=== PATIENT | male | born 1965 | race Caucasian/White ===

== ENCOUNTER 2017-09-24 20:05 | Inpatient (IN) | payer OTHER ==
[~2017-09-24] VITALS: Ht 160 cm; Wt 108.0 kg
[2017-09-24 20:24] VITALS: BP 189/112
--- NOTE | 2017-09-24 20:33 | NUR ---
PT TAKEN TO BED 11
--- NOTE | 2017-09-24 20:57 | NUR ---
Pt c/o hypertention x3 days. VSS. Pt in bed in POC with HOB elevated. ER aware. Continue to monitor.
--- NOTE | 2017-09-24 21:15 | NUR ---
DR. CROW EVALUATING PATIENT
[2017-09-24] MEDS ORDERED: FUROSEMIDE 40 MG/4 ML VIAL IVP ONE (21:20)
[2017-09-24] MEDS ORDERED: hydrALAZINE 20 MG/ML VIAL IVP ONE (21:20)
--- NOTE | 2017-09-24 21:22 | NUR ---
X-Ray at bedside.
[2017-09-24 21:58] LABS: BASOPHILS # (AUTO) 0.2 K/uL (0.00-0.22); BASOPHILS % (AUTO) 1.9 % (0.0-2.0); EOSINOPHILS # (AUTO) 0.1 K/uL (0-0.4); EOSINOPHILS % (AUTO) 1.2 % (0.0-4.0); HEMATOCRIT 39.7 % (36-52); HEMOGLOBIN 13.4 g/dL (12.0-18.0); LYMPHOCYTES # (AUTO) 2.6 K/uL (2.0-11.5); LYMPHOCYTES % (AUTO) 24.8 % (20.5-51.1); MEAN CORPUSCULAR HEMOGLOBIN 27 pg (27-31); MEAN CORPUSCULAR HGB CONC 34 g/dL (33-37); MEAN CORPUSCULAR VOLUME 81 fL (80-94); MONOCYTES # (AUTO) 0.8 K/uL (0.8-1.0); MONOCYTES % (AUTO) 7.7 % (1.7-9.3); NEUTROPHILS # (AUTO) 6.6 K/uL (1.8-7.7); NEUTROPHILS % (AUTO) 64.4 % (42.2-75.2); PLATELET COUNT (AUTO) 247 K/uL (140-450); RED BLOOD CELL COUNT(AUTO) 4.91 MIL/uL (4.20-6.10); RED CELL DISTRIBUTION WIDTH 13.3 % (11.6-13.7); WHITE BLOOD COUNT (AUTO) 10.3 K/uL (4.8-10.8)
[2017-09-24 22:10] LABS: ANION GAP 12.5 (8-16); CARBON DIOXIDE 23.6 mmol/L (21-32); CREATININE 2.5 mg/dL (0.7-1.3); POTASSIUM 4.1 mmol/L (3.5-5.1)
[2017-09-24 22:16] LABS: ALBUMIN 1.6 g/dL (3.4-5.0); TOTAL BILIRUBIN 0.4 mg/dL (0.0-1.0)
[2017-09-24] MEDS ORDERED: NACL 0.9% 1,000 ML IV SCH (22:59)
[2017-09-24] MEDS ORDERED: ALBUMIN HUMAN 25% 100 ML IV SCH (23:00)
[2017-09-24] MEDS ORDERED: LORazepam 2 MG/ML VIAL IVP PRN (23:00)
[2017-09-24] MEDS ORDERED: ONDANSETRON 4 MG/2 ML VIAL IVP PRN (23:00)
[2017-09-24] MEDS ORDERED: ACETAMINOPHEN 325 MG TAB PO PRN (23:00)
[2017-09-24] MEDS ORDERED: DEXTROSE 50% 50 ML SYR IVP PRN (23:00)
[2017-09-24] MEDS ORDERED: HYDROcodone/APAP 5/325 MG 1 TAB TAB PO PRN (23:00)
[2017-09-24] MEDS ORDERED: AMLO5TAB PO (23:08)
[2017-09-24] MEDS ORDERED: ATOR20TA PO (23:09)
[2017-09-24] MEDS ORDERED: METF500T PO (23:09)
[2017-09-24] MEDS ORDERED: GLIP5TAB4 PO (23:09)
--- NOTE | 2017-09-24 23:20 | NUR ---
Pt taken to floor room 123A by Malik MCARTHUR via angélica with VSS
[2017-09-24 23:30] VITALS: BP 175/101
--- NOTE | 2017-09-24 23:30 | NUR ---
Report and Care transfered to Kimo MCARTHUR
--- NOTE | 2017-09-24 23:30 | NUR ---
Admitted from ER, with chief complaint of ELEVATED BLOOD PRESSURE, INCREASING BLE EDEMA SINCE 4 DAYS AGO. PT STATED THAT HE WENT TO URGENT CARE 2 DAYS AGO AND WAS TOLD TO GO TO THE ER. 52 y/o, Male, Cooperative, AOX4, AMBULATORY, ABLE TO VERBALIZE NEEDS. COOK MANAGER IN PLACE. PT DENIES CHEST PAIN, SOB OR S/S OF ACUTE DISTRESS. SPO2 98% ON ROOM AIR, RR 20 EVEN AND UNLABORED. BP 175/101, HR 110. PT WAS JUST MEDICATED WITH APRESOLINE IVP AND LASIX IVP IN ER, WILL MONITOR. BLE EDEMA NOTED. IV ACCESS ASYMPTOMATIC, PATENT AND INTACT, SALINE LOCKED. oriented to call light, bed, phone,television, bathroom, smoking policy, visiting hours, procedures, ID bracelet on. Belongings list checked. ALL NEEDS MET. SAFETY MEASURES ENSURED. CALL LIGHT WITHIN REACH.
[2017-09-24] MEDS: BLOOD GLUCOSE MONITORING 1 DEV DEV FS SCH (23:50)
--- NOTE | 2017-09-24 23:50 | NUR ---
BLOOD GLUCOSE 126, NO INSULIN COVERAGE NEEDED. PROVIDED PT WITH SANDWICH. ADMINISTERED ALBUMIN IV WITH EDUCATION, PT VERBALIZED UNDERSTANDING. ALL NEEDS MET. IV INFUSING WELL. SAFETY MEASURES ENSURED. CALL LIGHT WITHIN REACH.
[2017-09-25] VITALS (10 sets, daily range): BP systolic 164–189; BP diastolic 95–113
[2017-09-25 00:47] LABS: CREATINE KINASE MB 4.3 ng/mL (0-3.6)
[2017-09-25] MEDS ORDERED: PNEUMOCOCCAL VACCINE 23 MCG/0.5 ML VIAL IMVAC PRN (02:00)
[2017-09-25] MEDS ORDERED: INFLUENZA VIRUS VACCINE QUAD 0.5 ML SYR IMVAC PRN (02:00)
[2017-09-25] MEDS: hydrALAZINE 20 MG/ML VIAL IVP PRN ×3 (04:50→20:15)
--- NOTE | 2017-09-25 05:20 | NUR ---
CALLED DR GAMBINO, COMMERCIAL CENSUS TAKER FOR DR MCLAUGHLIN, MADE AWARE OF BP 171/99, RECEIVED ORDER FOR APRESOLINE 10MG IVP Q4H PRN FOR SBP > 150. ADMINISTERED APRESOLIN 10MG IVP AT THIS TIME WITH EDUCATION, PT VERBALIZED UNDERSTANDING. ALL NEEDS MET. SAFETY MEASURES ENSURED. CALL LIGHT WITHIN REACH.
[2017-09-25] MEDS: BLOOD GLUCOSE MONITORING 1 DEV DEV FS SCH ×4 (06:17→20:13)
--- NOTE | 2017-09-25 06:23 | NUR ---
BLOOD GLUCOSE 109, NO INSULIN COVERAGE NEEDED. PT SLEEPING COMFORTABLY, ALL NEEDS MET. SAFETY MEASURES ENSURED. CALL LIGHT WITHIN REACH.
[2017-09-25 07:12] LABS: BASOPHILS # (AUTO) 0.1 K/uL (0.00-0.22); BASOPHILS % (AUTO) 1.4 % (0.0-2.0); EOSINOPHILS # (AUTO) 0.2 K/uL (0-0.4); EOSINOPHILS % (AUTO) 2.6 % (0.0-4.0); HEMATOCRIT 36.9 % (36-52); HEMOGLOBIN 12.5 g/dL (12.0-18.0); LYMPHOCYTES # (AUTO) 2.3 K/uL (2.0-11.5); LYMPHOCYTES % (AUTO) 27.1 % (20.5-51.1); MEAN CORPUSCULAR HEMOGLOBIN 27 pg (27-31); MEAN CORPUSCULAR HGB CONC 34 g/dL (33-37); MEAN CORPUSCULAR VOLUME 81 fL (80-94); MONOCYTES # (AUTO) 0.6 K/uL (0.8-1.0); MONOCYTES % (AUTO) 7.4 % (1.7-9.3); NEUTROPHILS # (AUTO) 5.2 K/uL (1.8-7.7); NEUTROPHILS % (AUTO) 61.5 % (42.2-75.2); PLATELET COUNT (AUTO) 218 K/uL (140-450); RED BLOOD CELL COUNT(AUTO) 4.54 MIL/uL (4.20-6.10); RED CELL DISTRIBUTION WIDTH 13.2 % (11.6-13.7); WHITE BLOOD COUNT (AUTO) 8.4 K/uL (4.8-10.8)
--- NOTE | 2017-09-25 07:15 | NUR ---
ENDORSED PLAN OF CARE TO AM NURSE. CONDITION STABLE.
--- NOTE | 2017-09-25 07:17 | NUR ---
RECEIVED PATIENT REPORT AT BEDSIDE FROM NIGHT NURSE, PATIENT SHOWS NO S/S OF ACUTE DISTRESS ON ROOM AIR. PATIENT DENIES CHEST PAIN AND SOB. PATIENT IS AAOX4, NOTED IV ON THE RT AC 20 G SL. SKIN INTACT. PATIENT WAS EXPLAINED POC FOR TODAY AND VERBALIZED UNDERSTANDING, SAFETY PRECAUTIONS IN PLACE. PATIENT AMB WITH STEADY GAIT. ALL NEEDS MET AT THIS TIME. BED IN LOW POSITION WITH CALL LIGHT WITHIN REACH.
[2017-09-25 07:32] LABS: APPEARANCE,URINE SLIGHTLY HAZY (CLEAR); BILIRUBIN,URINE NEGATIVE (NEGATIVE); BLOOD, URINE 2+ (NEGATIVE); COLOR,URINE YELLOW (YELLOW); LEUKOCYTE ESTERASE ,URINE NEGATIVE (NEGATIVE); NITRITE, URINE NEGATIVE (NEGATIVE); UGLUCOSE 1+ (NEGATIVE)
[2017-09-25 07:38] LABS: ANION GAP 14.4 (8-16); CARBON DIOXIDE 22.3 mmol/L (21-32); CREATININE 2.2 mg/dL (0.7-1.3); POTASSIUM 3.7 mmol/L (3.5-5.1)
--- NOTE | 2017-09-25 07:45 | NUR ---
PATIENT BP IS 179/109 HR 115, PATIENT HAS HYDRALAZINE 10 MG IVP FOR SBP> 150. PATIENT DENIES SOB, CHEST PAIN, DYSPNEA. WILL ADMINISTER MEDICATION.
[2017-09-25 07:58] LABS: CREATINE KINASE MB 2.6 ng/mL (0-3.6)
[2017-09-25] MEDS: ASPIRIN 81 MG TAB.CHEW PO SCH (09:45)
--- NOTE | 2017-09-25 10:00 | NUR ---
ADMINISTERED SCHEDULED MEDICATIONS, PNA VACCINE IM AND FLU VACCINE IM, AND HYDRALAZINE 10 MG IVP FOR BP SBP>150. BP IS 182/110 HR 114. PATIENT DENIES CHEST PAIN AND SOB. WILL REASSESS BP IN ONE HR. DR EDWARDS AT BEDSIDE AND NOTIFIED OF ELEVATED BP. DR FRANKLIN PLACE IN ORDERS.
[2017-09-25] MEDS ORDERED: cloNIDine 0.1 MG TAB PO PRN (10:30)
[2017-09-25] MEDS ORDERED: FUROSEMIDE 40 MG/4 ML VIAL IVP SCH ×2 (11:00→17:00)
[2017-09-25] MEDS ORDERED: METOPROLOL SUCCINATE 50 MG TABER PO SCH ×2 (11:00→14:10)
--- NOTE | 2017-09-25 11:30 | NUR ---
REASSESSED BP IS 164/103 HR 103. ADMINISTERED SCHEDULED MEDICATIONS LASIX 40 MG IVP AND METOPROLOL 25 MG PO. WILL REASSESS BP IN ONE HR.
[2017-09-25 11:38] LABS: RBC,URINE 0-5 (RARE) /HPF (0-5); WBC,URINE 0-5 (RARE) /HPF (0-5)
--- NOTE | 2017-09-25 13:00 | NUR ---
PATIENT'S BP CONTINUOS TO BE ELEVATED, DR MCLAUGHLIN NOTIFIED AND IS TO PLACE ORDERS.
[2017-09-25] MEDS ORDERED: hydrALAZINE 20 MG/ML VIAL IVP PRN (13:50)
--- NOTE | 2017-09-25 14:50 | NUR ---
PATIENT BP IS STILL ELEVATED BP 177/98 HR 98. PATIENT DENIES CHEST PAIN AND SOB. PATIENT HAS PRN MEDICATION FOR ELEVATED BP. WILL CONTINUE TO MONITOR BP AND GIVE PRN FOR BP WHEN NEEDED.
[2017-09-25 15:21] LABS: CREATINE KINASE MB 2.3 ng/mL (0-3.6)
--- NOTE | 2017-09-25 15:32 | NUR ---
09/25/17 RD INITIAL ASSESSMENT COMPLETED PLEASE REFER TO NUTRITION ASSESSMENT UNDER CARE ACTIVITY FOR ESTIMATED NUTRITIONAL NEEDS. RD RECOMMENDATIONS: 1- RECOMMEND CONTINUE CONSISTENT CARBOHYDRATE 60G CCHO DIET 2- PT WILL BENEFIT FROM LOW SODIUM DIET (+EDEMA, HX OF HTN); CONSIDER 60G CCHO 2G NA DIET 3- EDUCATE PT ON DIET 4- ENCOURAGE GRADUAL HEALTHY WEIGHT LOSS 5- F/U 3-5 DAYS; MODERATE RISK. OTILIA STONE MBA, RD
--- NOTE | 2017-09-25 15:39 | NUR ---
ADMINISTERED HYDRALAZINE 10 MG IVP FOR ELEVATED BP OF 178/107 HR 96, PATIENT DENIES CHEST PAIN AND SOB. WILL REASSESS BP IN ONE HR.
[2017-09-25] MEDS: FUROSEMIDE 40 MG/4 ML VIAL IVP SCH (16:17)
--- NOTE | 2017-09-25 16:23 | NUR ---
ADMINISTERED SCHEDULED MEDICATIONS, IV MEDICATION INFUSED WELL. ALL NEEDS MET AT THIS TIME.
--- NOTE | 2017-09-25 17:25 | NUR ---
PATIENT LATEST BP IS 176/101 HR 100, STILL CONTINUES TO BE ELEVATED, PAGED DR MCLAUGHLIN, DR TIJERINA IS AGRICULTURAL EQUIPMENT MECHANIC. AWAITING CALL BACK, PATIENT IS ASYMPTOMATIC, AND DENIES CHEST PAIN AND SOB.
--- NOTE | 2017-09-25 17:32 | NUR ---
SPOKE WITH DR TIJERINA REGARDING PATIENT'S ELEVATED BP. DR ORDERED TO GIVE AMLODIPINE 10 MG NOW, AND AMLODIPINE 10 MG DAILY, AND HYDRALAZINE 20 MG IVP PRN SBP> 160. WILL PLACE ORDERS.
[2017-09-25] MEDS ORDERED: amLODIPine 5 MG TAB PO SCH (17:45)
--- NOTE | 2017-09-25 18:04 | NUR ---
ADMINISTERED SCHEDULED MEDICATIONS AMLODIPINE 10 MG PO. WILL REASSESS BP IN ONE HR. PATIENT IS ASYMPTOMATIC, AND DENIES CHEST PAIN AND SOB. ALL NEEDS MET AT THIS TIME. FAMILY AT BEDSIDE.
--- NOTE | 2017-09-25 19:20 | NUR ---
GAVE PATIENT REPORT AT BEDSIDE TO NIGHT NURSE. PATIENT ENDORSED IN STABLE CONDITION.
--- NOTE | 2017-09-25 19:21 | NUR ---
RECEIVED HANDOFF REPORT FROM AM RN. PATIENT A&OX4. PATIENT DENIES PAIN. PATIENT DENIES STEINER, SOB, CP, DIZZINESS, NUMBNESS, HEART BURN. IV SITE PATENT AND INTACT. AT BEDSIDE. NO SIGNS OR SYMPTOMS OF ACUTE DISTRESS NOTED. CALL LIGHT WITHIN REACH. WILL CONTINUE TO MONITOR.
--- NOTE | 2017-09-25 20:05 | NUR ---
PATIENTS BP IS 175/102. PATIENT DENIES CP, SOB, STEINER, OR DIZZINESS. NO SIGNS OR SYMPTOMS OF ACUTE DISTRESS NOTED. HYDRALAZINE GIVEN PER MD ORDER. WILL REASSESS.
[2017-09-25] MEDS: INSULIN LISPRO SLIDING SCALE 100 UNITS/ML VIAL SUBQ PRN (20:23)
--- NOTE | 2017-09-25 21:15 | NUR ---
PATIENT BP IS 152/87. WILL CONTINUE TO MONITOR.
[2017-09-25 23:10] LABS: TOTAL PROTEIN URINE 298.6 MG/DL
[2017-09-26] VITALS: BP 147/73
[2017-09-26 04:00] VITALS: BP 154/86
[2017-09-26] MEDS: BLOOD GLUCOSE MONITORING 1 DEV DEV FS SCH ×4 (06:28→20:09)
[2017-09-26 06:42] LABS: BASOPHILS # (AUTO) 0.1 K/uL (0.00-0.22); EOSINOPHILS # (AUTO) 0.2 K/uL (0-0.4); EOSINOPHILS % (AUTO) 1.8 % (0.0-4.0); HEMATOCRIT 38.3 % (36-52); LYMPHOCYTES # (AUTO) 2.2 K/uL (2.0-11.5); LYMPHOCYTES % (AUTO) 24.7 % (20.5-51.1); MEAN CORPUSCULAR HEMOGLOBIN 28 pg (27-31); MEAN CORPUSCULAR HGB CONC 34 g/dL (33-37); MEAN CORPUSCULAR VOLUME 81 fL (80-94); MONOCYTES # (AUTO) 0.7 K/uL (0.8-1.0); NEUTROPHILS # (AUTO) 5.6 K/uL (1.8-7.7); NEUTROPHILS % (AUTO) 64.5 % (42.2-75.2); PLATELET COUNT (AUTO) 240 K/uL (140-450); RED BLOOD CELL COUNT(AUTO) 4.73 MIL/uL (4.20-6.10); RED CELL DISTRIBUTION WIDTH 13.6 % (11.6-13.7); WHITE BLOOD COUNT (AUTO) 8.8 K/uL (4.8-10.8)
[2017-09-26 07:02] LABS: ANION GAP 13.3 (8-16); CARBON DIOXIDE 22.2 mmol/L (21-32); POTASSIUM 3.5 mmol/L (3.5-5.1)
--- NOTE | 2017-09-26 07:38 | NUR ---
ENDORSED PLAN OF CARE TO AM RN. PATIENT IN STABLE CONDITION.
--- NOTE | 2017-09-26 07:39 | NUR ---
RECEIVED REPORT FROM TIN ASSORTER NURSE. PATIENT LYING IN BED SLEEPING, AROUSABLE BY VOICE. NO DISTRESS NOTED. DENIES ANY PAIN AT THIS TIME. RESPIRATIONS EVEN, UNLABORED, ON ROOM AIR. AAOX4, CALM, COOPERATIVE, SKIN COLOR APPROPRIATE TO ETHNICITY, WARM TO TOUCH. SKIN IS INTACT. HAS MILD NON-PITTING EDEMA ON LEFT LE. LUNGS CTA ON ALL LOBES. ABDOMEN SOFT, NON-DISTENDED. REVIEWED PLAN OF CARE WITH PATIENT. PATIENT VERBALIZED UNDERSTANDING. SAFETY MEASURES IN PLACE, CALL LIGHT WITHIN REACH. WILL CONTINUE TO MONITOR.
[2017-09-26 08:00] VITALS: BP 165/95
[2017-09-26] MEDS ORDERED: METOPROLOL SUCCINATE 50 MG TABER PO SCH ×2 (09:00→11:00)
[2017-09-26] MEDS ORDERED: amLODIPine 5 MG TAB PO SCH ×2 (09:00)
--- NOTE | 2017-09-26 09:20 | NUR ---
PATIENT LYING IN BED COMFORTABLY. TALKING WITH FAMILY MEMBER AT BEDSIDE. NO DISTRESS NOTED. DENIES ANY PAIN. SCHEDULED MEDICATIONS DUE GIVEN. SAFETY MEASURES IN PLACE, CALL LIGHT WITHIN REACH. WILL CONTINUE TO MONITOR.
[2017-09-26] MEDS: METOPROLOL SUCCINATE 50 MG TABER PO SCH (09:27)
[2017-09-26] MEDS: ATORVASTATIN 20 MG TAB PO SCH (09:29)
[2017-09-26] MEDS: FUROSEMIDE 40 MG/4 ML VIAL IVP SCH ×3 (09:30→16:14)
[2017-09-26] MEDS: ASPIRIN 81 MG TAB.CHEW PO SCH (09:34)
[2017-09-26] MEDS ORDERED: hydrALAZINE 25 MG TAB PO SCH (10:10)
--- NOTE | 2017-09-26 10:15 | NUR ---
24 HOUR URINE PROTEIN AND CREATININE COLLECTION STARTED AT THIS TIME (10:15). SIGNS POSTED ON DOOR, JUGS WITH ICE BIN AT BEDSIDE. SAFETY MEASURES IN PLACE, CALL LIGHT WITHIN REACH. WILL CONTINUE TO MONITOR. Addendum: 09/26/17 at 1133 by Edison Magaña RN CANCEL 24 HOUR URINE START TIME OF 10:15. ORDERED PROTEIN ELECTROPH RANDOM URINE, COLLECTED FROM URINE AT 1015. NEW START TIME WHEN PATIENT FIRST VOIDS. WILL CONTINUE TO MONITOR.
[2017-09-26 11:30] VITALS: BP 166/99
--- NOTE | 2017-09-26 11:33 | NUR ---
PATIENT'S BLOOD PRESSURE IS HIGH, GIVEN NEW HYDRALAZINE BP MEDICATION ORDERED BY DR. EDWARDS. SAFETY MEASURES IN PLACE, CALL LIGHT WITHIN REACH. WILL CONTINUE TO MONITOR.
--- NOTE | 2017-09-26 12:15 | NUR ---
PATIENT SITTING IN BED WITH LUNCH TRAY IN FRONT. NO DISTRESS NOTED. DENIES ANY PAIN. SCHEDULED MEDICATIONS DUE GIVEN. PATIENT VOIDED JUST NOW IN URINAL. START TIME OF 24 HOUR URINE COLLECTION FOR PROTEIN AND CREATININE STARTED AT 12:15. SAFETY MEASURES IN PLACE, CALL LIGHT WITHIN REACH. WILL CONTINUE TO MONITOR.
[2017-09-26] MEDS: INSULIN LISPRO SLIDING SCALE 100 UNITS/ML VIAL SUBQ PRN ×2 (12:25→20:09)
--- NOTE | 2017-09-26 14:18 | NUR ---
PATIENT SITTING IN BED TALKING WITH FAMILY MEMBERS AT BEDSIDE. NO DISTRESS NOTED. DENIES ANY PAIN. CONDITION UNCHANGED. WILL CONTINUE TO MONITOR.
[2017-09-26 16:00] VITALS: BP 156/89
--- NOTE | 2017-09-26 17:39 | NUR ---
PATIENT SITTING IN BED WITH DINNER TRAY IN FRONT. NO DISTRESS NOTED. DENIES ANY PAIN. FAMILY MEMBERS AT BEDSIDE. REPLACED ICE ON 24 HOURS URINE COLLECTION. SAFETY MEASURES IN PLACE, CALL LIGHT WITHIN REACH. WILL CONTINUE TO MONITOR.
--- NOTE | 2017-09-26 18:20 | NUR ---
PATIENT LYING IN BED TALKING WITH FAMILY MEMBERS AT BEDSIDE. NO DISTRESS NOTED. DENIES ANY PAIN. CONDITION UNCHANGED. SAFETY MEASURES IN PLACE, CALL LIGHT WITHIN REACH. WILL CONTINUE TO MONITOR.
--- NOTE | 2017-09-26 19:24 | NUR ---
GAVE REPORT TO HAZARDOUS MATERIAL TECHNICIAN NURSE FOR CONTINUITY OF CARE. PATIENT IN STABLE CONDITION.
--- NOTE | 2017-09-26 19:25 | NUR ---
RECEIVED REPORT FROM DAY SHIFT NURSE. PT IS A/OX4, ON ROOM AIR. 20G IV TO RIGHT AC SALINE LOCKED. PT IS AMBULATORY, WITH STEADY GAIT, AND PT SKIN IS INTACT. UPDATED BOARD. VITAL SIGNS WITHIN NORMAL LIMITS EXCEPT FOR TACHYCARDIC HEART RATE. PT IN STABLE CONDITION, NO SIGNS OF DISTRESS NOTED. BED IN LOWEST POSITION, CALL LIGHT WITHIN REACH. WILL CONTINUE TO MONITOR.
[2017-09-26 20:00] VITALS: BP 176/103
[2017-09-26] MEDS: hydrALAZINE 25 MG TAB PO SCH (20:05)
--- NOTE | 2017-09-26 20:15 | NUR ---
BP WAS HIGH, ADMINISTERED SCHEDULED MEDICATIONS INCLUDING BP MEDICATION, PT TOLERATED WELL. WILL CONTINUE TO MONITOR.
[2017-09-27] VITALS (8 sets, daily range): BP systolic 147–168; BP diastolic 82–104
--- NOTE | 2017-09-27 | NUR ---
VITAL SIGNS WITHIN NORMAL LIMITS. PT IN STABLE CONDITION, NO SIGNS OF DISTRESS NOTED. BED IN LOWEST POSITION, CALL LIGHT WITHIN REACH. WILL CONTINUE TO MONITOR.
[2017-09-27] MEDS: hydrALAZINE 20 MG/ML VIAL IVP PRN (00:32)
--- NOTE | 2017-09-27 04:00 | NUR ---
VITAL SIGNS WITHIN NORMAL LIMITS. PT IN STABLE CONDITION, NO SIGNS OF DISTRESS NOTED. BED IN LOWEST POSITION, CALL LIGHT WITHIN REACH. WILL CONTINUE TO MONITOR.
[2017-09-27 06:42] LABS: BASOPHILS # (AUTO) 0.1 K/uL (0.00-0.22); BASOPHILS % (AUTO) 1.5 % (0.0-2.0); EOSINOPHILS # (AUTO) 0.2 K/uL (0-0.4); EOSINOPHILS % (AUTO) 2.3 % (0.0-4.0); HEMATOCRIT 41.5 % (36-52); HEMOGLOBIN 13.8 g/dL (12.0-18.0); LYMPHOCYTES # (AUTO) 2.4 K/uL (2.0-11.5); LYMPHOCYTES % (AUTO) 26.7 % (20.5-51.1); MEAN CORPUSCULAR HEMOGLOBIN 27 pg (27-31); MEAN CORPUSCULAR HGB CONC 33 g/dL (33-37); MEAN CORPUSCULAR VOLUME 82 fL (80-94); MONOCYTES # (AUTO) 0.7 K/uL (0.8-1.0); MONOCYTES % (AUTO) 7.9 % (1.7-9.3); NEUTROPHILS # (AUTO) 5.5 K/uL (1.8-7.7); NEUTROPHILS % (AUTO) 61.6 % (42.2-75.2); PLATELET COUNT (AUTO) 268 K/uL (140-450); RED BLOOD CELL COUNT(AUTO) 5.04 MIL/uL (4.20-6.10); RED CELL DISTRIBUTION WIDTH 13.1 % (11.6-13.7); WHITE BLOOD COUNT (AUTO) 8.9 K/uL (4.8-10.8)
[2017-09-27 07:03] LABS: ALBUMIN 1.6 g/dL (3.4-5.0); ANION GAP 13.4 (8-16); CARBON DIOXIDE 23.3 mmol/L (21-32); POTASSIUM 3.7 mmol/L (3.5-5.1); TOTAL BILIRUBIN 0.5 mg/dL (0.0-1.0)
[2017-09-27] MEDS: BLOOD GLUCOSE MONITORING 1 DEV DEV FS SCH ×4 (07:12→21:02)
--- NOTE | 2017-09-27 07:28 | NUR ---
ENDORSED PT IN STABLE CONDITION TO DAY SHIFT SHIFT NURSE FOR CONTINUITY OF CARE.
[2017-09-27] MEDS: hydrALAZINE 25 MG TAB PO SCH ×2 (08:20→19:39)
[2017-09-27] MEDS: ATORVASTATIN 20 MG TAB PO SCH (08:20)
[2017-09-27] MEDS: METOPROLOL SUCCINATE 50 MG TABER PO SCH (08:21)
[2017-09-27] MEDS: ASPIRIN 81 MG TAB.CHEW PO SCH (08:21)
[2017-09-27] MEDS: FUROSEMIDE 40 MG/4 ML VIAL IVP SCH ×3 (09:05→17:26)
[2017-09-27] MEDS: INSULIN LISPRO SLIDING SCALE 100 UNITS/ML VIAL SUBQ PRN ×2 (12:03→21:02)
--- NOTE | 2017-09-27 13:43 | NUR ---
CM NOTE INITIAL REVIEW FAXED TO [facility] (FAX# [phone], ATTN: [facility] #[phone]) AND [facility] (FAX# [phone], C: [phone])
--- NOTE | 2017-09-27 13:55 | NUR ---
DR. MCLAUGHLIN CAME, INFORMED PT. VS SINCE 08. NO ORDER RECEIVED.
--- NOTE | 2017-09-27 17:00 | NUR ---
DR. ALMAZAN CAME AND SEEN PT..
--- NOTE | 2017-09-27 19:08 | NUR ---
BEDSIDE REPORT GIVEN TO ERROL PETERSON. IN STABLE CONDITION.
--- NOTE | 2017-09-27 19:30 | NUR ---
RECEIVED FROM AM NURSE AWAKE AND ALERT. VISITORS VISITING. VERBALIZES WELL. CALL LIGHT WITH IN REACH AND NO SOB. VITAL SIGNS TAKEN AND B/P 166/92. MEDICATIONS FOR HTN DUE AT 2100 WILL BE ADMINISTERED EARLIER INSTEAD. PT. CARE PLANS FOR THE NIGHT DISCUSSED WITH THEM. IVF SITE INTACT AND NO INFILTRATION NOTED. DX. OF ACCELERATED HTN AND SWELLING OF LEGS.
[2017-09-27] MEDS ORDERED: CARVEDILOL 6.25 MG TAB PO SCH (21:00)
--- NOTE | 2017-09-27 21:20 | NUR ---
WATCHING TV AT THIS TIME. NO COMPLAINTS DONE. FAMILY LEFT FOR HOME. CALL LIGHT WITH IN REACH.
--- NOTE | 2017-09-28 00:10 | NUR ---
SLEEPING WELL. WOKE UP EASILY WHEN VITAL SIGNS TAKEN. GOOD AFFECT.
--- NOTE | 2017-09-28 02:43 | NUR ---
SLEEPING WELL . CALL LIGHT WITH IN REACH. NO COMPLAINTS DONE. TELEMETRY MONITORING. A/O X 4 . ABLE TO VERBALIZE NEEDS WELL.
--- NOTE | 2017-09-28 03:30 | NUR ---
SLEEPING. CALL LIGHT WITH IN REACH. NO S/S OF HYPO/HYPERGLYCEMIA NOTED.
[2017-09-28 04:00] VITALS: BP 160/95
[2017-09-28] MEDS: BLOOD GLUCOSE MONITORING 1 DEV DEV FS SCH ×2 (06:01→12:16)
[2017-09-28 06:23] LABS: BASOPHILS # (AUTO) 0.3 K/uL (0.00-0.22); BASOPHILS % (AUTO) 3.7 % (0.0-2.0); EOSINOPHILS # (AUTO) 0.2 K/uL (0-0.4); EOSINOPHILS % (AUTO) 3.3 % (0.0-4.0); HEMATOCRIT 36.4 % (36-52); HEMOGLOBIN 12.5 g/dL (12.0-18.0); LYMPHOCYTES # (AUTO) 2.2 K/uL (2.0-11.5); LYMPHOCYTES % (AUTO) 29.8 % (20.5-51.1); MEAN CORPUSCULAR HEMOGLOBIN 28 pg (27-31); MEAN CORPUSCULAR HGB CONC 34 g/dL (33-37); MEAN CORPUSCULAR VOLUME 81 fL (80-94); MONOCYTES # (AUTO) 0.8 K/uL (0.8-1.0); MONOCYTES % (AUTO) 10.4 % (1.7-9.3); NEUTROPHILS # (AUTO) 3.9 K/uL (1.8-7.7); NEUTROPHILS % (AUTO) 52.8 % (42.2-75.2); PLATELET COUNT (AUTO) 221 K/uL (140-450); RED CELL DISTRIBUTION WIDTH 13.5 % (11.6-13.7); WHITE BLOOD COUNT (AUTO) 7.4 K/uL (4.8-10.8)
--- NOTE | 2017-09-28 06:23 | NUR ---
NO COMPLAINTS DONE THIS SHUIFT. SLEPT WELL. INDEPENDENT. AMBULATES WELL. CALL LIGHT WITH IN REACH. BLOOD SUGAR THIS A.M. 105 MG/DL. TELEMETRY MONITORING.
[2017-09-28] MEDS ORDERED: glipiZIDE 5 MG TAB PO SCH (06:30)
--- NOTE | 2017-09-28 07:15 | NUR ---
RECEIVED PATIENT AT BEDSIDE. PATIENT AWAKE, ALERT AND ORIENTED. PATIENT ON ROOM AIR. NO S/S OF DISTRESS NOTED. PATIENT DENIES ANY DISCOMFORT. IV LINE NOTED TO THE RIGHT AC SALINE LOCKED. PATIENT ON TELE MONITORING. BED LOWERED WITH CALL LIGHT WITHIN REACH. WILL CONTINUE TO MONITOR
[2017-09-28 07:44] LABS: ANION GAP 9.7 (8-16); CARBON DIOXIDE 26.2 mmol/L (21-32); POTASSIUM 3.9 mmol/L (3.5-5.1)
[2017-09-28 07:45] LABS: ALBUMIN 1.4 g/dL (3.4-5.0); TOTAL BILIRUBIN 0.3 mg/dL (0.0-1.0)
[2017-09-28 08:00] VITALS: BP 173/99
--- NOTE | 2017-09-28 08:02 | NUR ---
SPOKE WITH DR ALMAZAN AND INFORMED HIM ABOUT PATIENT'S BP. NEW ORDERS RECEIVED
[2017-09-28] MEDS: FUROSEMIDE 40 MG/4 ML VIAL IVP SCH ×2 (08:34→12:05)
[2017-09-28] MEDS: hydrALAZINE 25 MG TAB PO SCH (08:35)
[2017-09-28] MEDS ORDERED: NIFEdipine 30 MG TABER PO SCH (09:00)
[2017-09-28] MEDS ORDERED: CARVEDILOL 12.5 MG TAB PO SCH (09:00)
[2017-09-28] MEDS ORDERED: METOPROLOL SUCCINATE 50 MG TABER PO SCH (09:00)
[2017-09-28 10:10] LABS: HEPATITIS B SURFACE ANTIGEN Negative (Negative)
[2017-09-28 10:10] LABS: PROTEIN, TOTAL, URINE 529.2 mg/dL (Not Estab.)
[2017-09-28 12:00] VITALS: BP 169/98
[2017-09-28] MEDS: hydrALAZINE 20 MG/ML VIAL IVP PRN (12:05)
[2017-09-28 13:00] VITALS: BP 141/84
--- NOTE | 2017-09-28 13:00 | NUR ---
PATIENT SEEN BY DR MCLAUGHLIN
[2017-09-28] MEDS ORDERED: METO100T14 PO (13:41)
[2017-09-28] MEDS ORDERED: NIFE30TE8 PO (13:41)
[2017-09-28] MEDS ORDERED: HYDR100T79 PO (13:42)
--- NOTE | 2017-09-28 14:34 | NUR ---
CM NOTE INITIAL REVIEW FAXED TO [facility] (FAX# [phone], ATTN: [facility] #[phone]) AND [facility] (FAX# [phone], C: [phone]).
--- NOTE | 2017-09-28 14:40 | NUR ---
PATIENT DISCHARGED TO HOME. DISCHARGE INSTRUCTIONS AND DISCHARGE PRESCRIPTIONS GIVEN. PATIENT VERBALIZED UNDERSTANDING. IV LINE DISCONTINUED. TELE LEADS AND MONITOR TAKEN OFF. PATIENT LEFT WITH ALL HIS BELONGINGS AND DISCHARGE PAPERS. PATIENT LEFT IN STABLE CONDITION
[2017-09-28 16:11] LABS: ANTI-NUCLEAR ANTIBODY,DIRECT Negative (Negative)
--- NOTE | 2017-09-29 15:33 | NUR ---
FAXED DISCHARGE SUMMARY AND INDICATED ON FAX SHEET DATE OF DISCHARGE TO [facility] [phone] PHONE [facility] [phone]
[2017-09-30 09:07] LABS: ANTI-GLUMERULAR BASE MEM AB QN 3 units (0-20)
== END 2017-09-28 14:40 | disposition home or self-care (01) | DRG 470 ==
LOC: MED 20:05 → MTU 23:10
PROVIDERS: ADMIT Hospitalist; ATTEND Hospitalist
PROC: 3E0234Z Introduction of Serum, Toxoid and Vaccine into Muscle, Percutaneous Approach (ICD-10-PCS; principal; 2017-09-25)
PROC: 3E0234Z Introduction of Serum, Toxoid and Vaccine into Muscle, Percutaneous Approach (ICD-10-PCS; 2017-09-25)
DX: I12.9 Hypertensive chronic kidney disease with stage 1 through stage 4 chronic kidney disease, or unspecified chronic kidney disease (principal); E43 Unspecified severe protein-calorie malnutrition; E11.21 Type 2 diabetes mellitus with diabetic nephropathy; E11.22 Type 2 diabetes mellitus with diabetic chronic kidney disease; E83.51 Hypocalcemia; E78.5 Hyperlipidemia, unspecified; N18.9 Chronic kidney disease, unspecified; Z23 Encounter for immunization; Z68.41 Body mass index [BMI] 40.0-44.9, adult
CPT/HCPCS: 36415; 71045; 80048; 80053; 81001; 82306; 82330; 82550; 82553; 82570; 82948; 83036; 83516; 83735; 83874; 83880; 84100; 84156; 84165; 84300; 84484; 85025; 85379; 86038; 86160; 86803; 87081; 87086; 87340; 90658; 90732; 93970; 93976; 96374; 96375; 99285; J0360; J1644; J1815; J1940; J7030; J7060; P9046; Q0092

== ENCOUNTER 2017-11-11 20:24 | Emergency (ER) | payer OTHER ==
[~2017-11-11] VITALS: Ht 162.6 cm; Wt 113.4 kg
[~2017-11-11 20:24] MED LIST: AMLO5TAB PO; ATOR20TA PO; GLIP5TAB4 PO; HYDR100T79 PO; METO100T14 PO; NIFE30TE8 PO
[2017-11-11 20:39] VITALS: BP 155/91
--- NOTE | 2017-11-11 20:48 | NUR ---
TO NONA Rivera
--- NOTE | 2017-11-11 20:50 | NUR ---
PATIENT IS A 52 Y/O MALE WHO PRESENTS TO THE ED C/O SWELLING. PT STATES THAT HE WAS ADMITTED LAST MONTH WITH THE SAME SYMPTOMS. PT DENIES PAIN AT THIS TIME. PT DENIES CP, SOB, N/V/D. NOTED BILATERAL 4+ PITTING EDEMA OF THE LEGS. PT AAOX4, RR EVEN/UNLABORED. PT REPOSITIONED FOR COMFORT, BED IN LOWEST POSITION. ER MD DR. GRAVES NOTIFIED. WILL CONTINUE TO MONITOR.
--- NOTE | 2017-11-11 21:09 | NUR ---
MOVED TO ER BED 1
--- NOTE | 2017-11-11 21:10 | NUR ---
received report from Tristen MCARTHUR
[2017-11-11] MEDS ORDERED: FURO-570 PO (21:14)
[2017-11-11] MEDS ORDERED: HYDR100T79 PO (21:14)
[2017-11-11] MEDS ORDERED: NIFE60TE5 PO (21:14)
[2017-11-11] MEDS ORDERED: LOSA50TA39 PO (21:14)
--- NOTE | 2017-11-11 21:30 | NUR ---
Note pola in EDM - 11/11/17 at 2314 by SARA Patient discharged with v/s stable. Written and verbal after care instructions given and explained. Patient alert, oriented and verbalized understanding of instructions. Ambulatory with steady gait. All questions addressed prior to discharge. ID band removed. Patient advised to follow up with PMD. Rx of ACETAMINOPHEN AND LASIX given. Patient educated on indication of medication including possible reaction and side effects. Opportunity to ask questions provided and answered.
[2017-11-11 21:50] LABS: BASOPHILS # (AUTO) 0.1 K/uL (0.00-0.22); BASOPHILS % (AUTO) 0.8 % (0.0-2.0); EOSINOPHILS # (AUTO) 0.2 K/uL (0-0.4); EOSINOPHILS % (AUTO) 2.2 % (0.0-4.0); HEMATOCRIT 33.9 % (36-52); HEMOGLOBIN 11.3 g/dL (12.0-18.0); LYMPHOCYTES # (AUTO) 2.6 K/uL (2.0-11.5); LYMPHOCYTES % (AUTO) 32.9 % (20.5-51.1); MEAN CORPUSCULAR HEMOGLOBIN 27 pg (27-31); MEAN CORPUSCULAR HGB CONC 33 g/dL (33-37); MEAN CORPUSCULAR VOLUME 82.2 fL (80-94); MONOCYTES # (AUTO) 0.8 K/uL (0.8-1.0); MONOCYTES % (AUTO) 9.6 % (1.7-9.3); NEUTROPHILS # (AUTO) 4.4 K/uL (1.8-7.7); NEUTROPHILS % (AUTO) 54.5 % (42.2-75.2); PLATELET COUNT (AUTO) 295 K/uL (140-450); RED BLOOD CELL COUNT(AUTO) 4.12 MIL/uL (4.20-6.10); RED CELL DISTRIBUTION WIDTH 15.2 % (11.6-13.7)
[2017-11-11 21:55] LABS: PROTHROMBIN TIME 10.8 secs (10.8-13.4)
[2017-11-11 21:58] LABS: ALBUMIN 1.4 g/dL (3.4-5.0); CARBON DIOXIDE 25.6 mmol/L (21-32); CREATININE 2.3 mg/dL (0.7-1.3); POTASSIUM 4.6 mmol/L (3.5-5.1); TOTAL BILIRUBIN 0.3 mg/dL (0.0-1.0)
[2017-11-11 22:07] LABS: CREATINE KINASE MB 1.5 ng/mL (0-3.6)
[2017-11-11] MEDS ORDERED: KETOROLAC 30 MG/ML VIAL IM ONE (22:45)
--- NOTE | 2017-11-11 23:10 | NUR ---
Patient discharged with v/s stable. Written and verbal after care instructions given and explained. Patient alert, oriented and verbalized understanding of instructions. Ambulatory with steady gait. All questions addressed prior to discharge. ID band removed. Patient advised to follow up with PMD. Rx of ACETAMINOPHEN AND LASIX given. Patient educated on indication of medication including possible reaction and side effects. Opportunity to ask questions provided and answered.
[2017-11-11 23:15] VITALS: BP 158/94
== END 2017-11-11 23:10 | disposition home or self-care (01) ==
LOC: MED 20:24
DX: N18.9 Chronic kidney disease, unspecified (principal); R60.1 Generalized edema; E11.9 Type 2 diabetes mellitus without complications; I10 Essential (primary) hypertension; Z79.899 Other long term (current) drug therapy
CPT/HCPCS: 36415; 71045; 80053; 82550; 82553; 82948; 83880; 84484; 85025; 85610; 85730; 93005; 96372; 99285; J1885; Q0092